=== PATIENT | male | born 1965 | race Caucasian/White ===

== ENCOUNTER 2017-03-26 04:25 | Inpatient (IN) | payer OTHER ==
[2017-03-26] MEDS ORDERED: HYDROmorphone 2 MG/ML VIAL (05:44)
[2017-03-26 05:45] LABS: ADD MAN DIFF? NO
[2017-03-26] MEDS ORDERED: CONTRAST GIVEN MC (05:45)
[2017-03-26] MEDS: IV NORMAL SALINE 1000ML BAG 1,000 ML IV (05:47)
[2017-03-26] MEDS: HYDROmorphone 2 MG/ML VIAL IV (05:47)
[2017-03-26 05:49] LABS: BASO # 0.1 x10^3/uL (0.0-0.2); BASO % 1 % (0-3); EOS # 0.6 x10^3/uL (0.0-0.7); EOS % 7 % (0-3); HEMATOCRIT 43.9 % (39.0-53.0); HEMOGLOBIN 15.4 g/dL (13.0-17.5); LYMPH # 2.2 x10^3/uL (1.0-4.8); LYMPH % 29 % (24-48); MEAN CORPUSCULAR HEMOGLOBIN 34 pg (25-35); MEAN CORPUSCULAR HGB CONC 35 g/dL (31-37); MEAN CORPUSCULAR VOLUME 96 fL (79-100); MONO # 0.7 x10^3/uL (0.0-1.1); MONO % 10 % (0-9); NEUT # 4.2 x10^3uL (1.8-7.7); NEUT % 54 % (31-73); PLATELET COUNT 235 x10^3/uL (140-400); RED BLOOD COUNT 4.58 x10^6/uL (4.30-5.70); RED CELL DISTRIBUTION WIDTH 12.7 % (11.5-14.5); WHITE BLOOD COUNT 7.8 x10^3/uL (4.0-11.0)
[2017-03-26 05:57] LABS: BILIRUBIN,URINE NEGATIVE (NEG); CLARITY,URINE CLEAR; COLOR,URINE AMBER; GLUCOSE,URINE NEGATIVE (NEG); NITRITE,URINE NEGATIVE (NEG); PH,URINE 5.5; PROTEIN,URINE NEGATIVE (NEG-TRACE); UROBILINOGEN,URINE 0.2 mg/dL (0.2 mg/dL)
[2017-03-26 05:59] LABS: BLOOD UREA NITROGEN 15 mg/dL (8-26); CALCIUM 9.3 mg/dL (8.5-10.1); GLUCOSE 128 mg/dL (70-99)
[2017-03-26 06:00] LABS: ANION GAP 11 (6-14); BUN/CREATININE RATIO 19 (6-20); CARBON DIOXIDE 28 mmol/L (21-32); CHLORIDE 101 mmol/L (98-107); CREATININE 0.8 mg/dL (0.7-1.3); GFR 101.9; POTASSIUM 3.8 mmol/L (3.5-5.1); SODIUM 140 mmol/L (136-145)
[2017-03-26 06:05] LABS: ALBUMIN 3.6 g/dL (3.4-5.0); ALBUMIN/GLOBULIN RATIO 0.9 (1.0-1.7); ALK PHOS 100 U/L (46-116); ALT (SGPT) 35 U/L (16-63); AST (SGOT) 17 U/L (15-37); LIPASE 86 U/L (73-393); TOTAL BILIRUBIN 0.7 mg/dL (0.2-1.0); TOTAL PROTEIN 7.5 g/dL (6.4-8.2)
[2017-03-26 06:13] LABS: SQUAMOUS EPITHELIAL CELL,UR OCC /LPF
[2017-03-26 06:14] LABS: BACTERIA,URINE FEW /HPF (0-FEW); RBC,URINE 0 /HPF (0-2); WBC,URINE OCC /HPF (0-4)
[2017-03-26] MEDS: IOHEXOL 300 MG/ML 100ML VIAL. IV ×2 (06:20→06:30)
[2017-03-26] MEDS: IV DEXTROSE 5 %-0.45 % NACL 1,000 ML IV (08:00)
[2017-03-26 08:11] LABS: TROPONINI < 0.017 ng/mL (0.000-0.055)
[2017-03-26 08:19] LABS: CKMB INDEX 0.9 % (0-4); CKMB MASS 1.2 ng/mL (0.0-3.6); CREATINE KINASE 138 U/L (39-308)
[2017-03-26] MEDS: IV 1/2 NORMAL SALINE 1,000 ML IV (08:46)
[2017-03-26] MEDS ORDERED: POLYETHYLENE GLYCOL 3350 17 GM PACKET. PO (10:30)
[2017-03-26] MEDS: POLYETHYLENE GLYCOL 3350 238 GM POWDER PO (13:46)
[2017-03-26 14:02] LABS: TROPONINI < 0.017 ng/mL (0.000-0.055)
[2017-03-26] MEDS: ONDANSETRON PF 4 MG/2 ML VIAL. IV (16:56)
[2017-03-26] MEDS: MORPHINE SULFATE 4 MG/ML DISP.SYRIN. IV (16:57)
[2017-03-27] MEDS: MORPHINE SULFATE 4 MG/ML DISP.SYRIN. IV (04:45)
[2017-03-27 05:02] LABS: ADD MAN DIFF? NO
[2017-03-27 05:16] LABS: BASO % 1 % (0-3); EOS # 0.5 x10^3/uL (0.0-0.7); EOS % 6 % (0-3); HEMATOCRIT 41.3 % (39.0-53.0); HEMOGLOBIN 14.2 g/dL (13.0-17.5); LYMPH # 2.1 x10^3/uL (1.0-4.8); LYMPH % 28 % (24-48); MEAN CORPUSCULAR HEMOGLOBIN 33 pg (25-35); MEAN CORPUSCULAR HGB CONC 34 g/dL (31-37); MEAN CORPUSCULAR VOLUME 95 fL (79-100); MONO # 0.6 x10^3/uL (0.0-1.1); MONO % 8 % (0-9); NEUT # 4.3 x10^3uL (1.8-7.7); NEUT % 57 % (31-73); PLATELET COUNT 225 x10^3/uL (140-400); RED BLOOD COUNT 4.35 x10^6/uL (4.30-5.70); RED CELL DISTRIBUTION WIDTH 12.9 % (11.5-14.5); WHITE BLOOD COUNT 7.5 x10^3/uL (4.0-11.0)
[2017-03-27 06:01] LABS: ALBUMIN 3.3 g/dL (3.4-5.0); ALBUMIN/GLOBULIN RATIO 0.9 (1.0-1.7); ALK PHOS 93 U/L (46-116); ALT (SGPT) 38 U/L (16-63); ANION GAP 10 (6-14); AST (SGOT) 21 U/L (15-37); BLOOD UREA NITROGEN 13 mg/dL (8-26); BUN/CREATININE RATIO 14 (6-20); CALCIUM 8.8 mg/dL (8.5-10.1); CARBON DIOXIDE 27 mmol/L (21-32); CHLORIDE 103 mmol/L (98-107); CREATININE 0.9 mg/dL (0.7-1.3); GLUCOSE 116 mg/dL (70-99); POTASSIUM 3.9 mmol/L (3.5-5.1); SODIUM 140 mmol/L (136-145); TOTAL BILIRUBIN 0.7 mg/dL (0.2-1.0); TOTAL PROTEIN 6.9 g/dL (6.4-8.2)
[2017-03-27] MEDS: LISINOPRIL 2.5 MG TABLET PO (13:00)
[2017-03-27] MEDS: NORMAL SALINE IV (14:00)
[2017-03-27] MEDS: SINCALIDE IV (14:00)
[2017-03-27] MEDS ORDERED: ATORVASTATIN CALCIUM 40 MG TABLET. PO (21:00)
[2017-03-27] MEDS ORDERED: PRAMIPEXOLE 1 MG TABLET. PO (21:00)
[2017-03-28] MEDS ORDERED: metFORMIN 500 MG TABLET PO (08:00)
== END 2017-03-27 16:28 | disposition home or self-care (01) | DRG 392 ==
LOC: ER 04:25 → 6 SOUTH 07:30
DX: R10.10 Upper abdominal pain, unspecified (principal); E11.9 Type 2 diabetes mellitus without complications; E78.00 Pure hypercholesterolemia, unspecified; E78.5 Hyperlipidemia, unspecified; I10 Essential (primary) hypertension; K57.90 Diverticulosis of intestine, part unspecified, without perforation or abscess without bleeding; Z79.84 Long term (current) use of oral hypoglycemic drugs; Z82.3 Family history of stroke; Z82.49 Family history of ischemic heart disease and other diseases of the circulatory system; Z83.3 Family history of diabetes mellitus; Z86.010 Personal history of colon polyps; Z90.49 Acquired absence of other specified parts of digestive tract; Z80.9 Family history of malignant neoplasm, unspecified; Z87.891 Personal history of nicotine dependence
CPT/HCPCS: 36415; 74177; 76705; 78226; 80053; 81001; 82553; 83690; 84484; 85025; 93005; 96374; 96375; A9537; J1170; J2270; J2405; J2805; J7030; Q9967

== ENCOUNTER → 2017-05-14 | Outpatient (CLI) | payer OTHER | END | disposition home or self-care (01) | LOC: MRI 15:13 | DX: M79.632 Pain in left forearm (principal) | CPT/HCPCS: 73218 ==

== ENCOUNTER 2018-05-26 15:06 | Inpatient (IN) | payer OTHER ==
[~2018-05-26] VITALS: Ht 165.1 cm; Wt 109.3 kg
[~2018-05-26 15:06] MED LIST: ACET-422 PO; CRESTOR20 MG PO; CYCL10TA2 PO; DOCU-109 PO; LISI2.5T PO; METF500T16 PO; OXYC1TAB7 PO; PHEN15CA2 PO; PRAM0.5T PO; PRAM1TAB5 PO; PRED20TA PO; TIOT18CA IH; [UNRECOGNIZED DRUG - OTHER]
[2018-05-26 17:01] LABS: BASO # 0.1 x10^3/uL (0.0-0.2); BASO % 1 % (0-3); EOS # 0.4 x10^3/uL (0.0-0.7); EOS % 4 % (0-3); HEMATOCRIT 42.9 % (39.0-53.0); HEMOGLOBIN 14.6 g/dL (13.0-17.5); LYMPH # 2.2 x10^3/uL (1.0-4.8); LYMPH % 22 % (24-48); MEAN CORPUSCULAR HEMOGLOBIN 33 pg (25-35); MEAN CORPUSCULAR HGB CONC 34 g/dL (31-37); MEAN CORPUSCULAR VOLUME 96 fL (79-100); MONO # 0.8 x10^3/uL (0.0-1.1); MONO % 8 % (0-9); NEUT # 6.4 x10^3uL (1.8-7.7); NEUT % 65 % (31-73); PLATELET COUNT 244 x10^3/uL (140-400); RED BLOOD COUNT 4.46 x10^6/uL (4.30-5.70); RED CELL DISTRIBUTION WIDTH 13.2 % (11.5-14.5); WHITE BLOOD COUNT 9.9 x10^3/uL (4.0-11.0)
[2018-05-26] MEDS ORDERED: IOHEXOL 240 MG/ML 50ML VIAL. PO ONE (17:15)
[2018-05-26] MEDS ORDERED: CONTRAST GIVEN. MC PRN (17:15)
[2018-05-26] MEDS ORDERED: IOHEXOL 300 MG/ML 100ML VIAL. IV ONE (17:15)
[2018-05-26 17:38] LABS: CALCIUM 9.1 mg/dL (8.5-10.1); CREATININE 0.8 mg/dL (0.7-1.3); GFR 101.5; POTASSIUM 4.2 mmol/L (3.5-5.1)
[2018-05-26 17:44] LABS: ALBUMIN 3.4 g/dL (3.4-5.0); ALBUMIN/GLOBULIN RATIO 0.9 (1.0-1.7); TOTAL BILIRUBIN 0.4 mg/dL (0.2-1.0); TOTAL PROTEIN 7.3 g/dL (6.4-8.2)
[2018-05-26] MEDS ORDERED: fentaNYL PF VIAL 100 MCG/2 ML VIAL IV ONE (18:00)
--- NOTE | 2018-05-26 18:36 | RAD ---
CT ABD PELV W/ORAL IV CONTRAST Indication: Upper abdominal pain Technique: Postcontrast CT imaging was performed of the abdomen and pelvis, multiplanar reconstruction images submitted. One or more of the following individualized dose reduction techniques were utilized for this examination: 1. Automated exposure control 2. Adjustment of the mA and/or kV according to patient size 3. Use of iterative reconstruction technique. Comparison: August 27, 2014 Findings: There is diffuse hepatic steatosis. There is no abnormality of the limited visualized lung bases. Gallbladder is present without obvious intraluminal abnormality by CT. There is no adrenal nodularity. No focal abnormality is identified of the pancreas or spleen. Both kidneys enhance, no hydronephrosis. There is a small 0.7 cm hypodense lesion of the superior right kidney too small to accurately characterize, slightly larger than 2015 exam when measured about 0.5 cm. The colon is not opacified with oral contrast during the exam. There is scattered colonic diverticulosis, larger diverticula of the transverse colon. There is some hazy and strandy change of the fat about the mid transverse colon, larger diverticulum also present in this region, associated mild wall thickening. Small bowel is not dilated. Normal appendix is visualized. IMPRESSION: 1. There is inflammatory change and wall thickening associated with the mid transverse colon at which there is diverticulosis, evidence of diverticulitis. However colon screening should be considered after resolution of acute symptoms if this has not been performed. 2. There is hepatic steatosis. Electronically signed by: Darius Triplett MD (05/26/2018 6:33 PM) [facility]
--- NOTE | 2018-05-26 18:56 | PHYS DOC ---
Past Medical History Past Medical History: Diabetes-Type II, Diverticulitis, High Cholesterol, Hypertension Additional Past Medical Histor: RLS Past Surgical History: Other Additional Past Surgical Histo: 14" COLON RESECTION, HERNIA Alcohol Use: None Drug Use: None Adult General Chief Complaint Chief Complaint: ABDOMINAL PAIN HPI HPI Patient is a 52 year old male who presents with increasing abdominal pain that started this morning. The patient states that it is a mid upper quadrant abdominal pain but it radiates across his belly. The patient has a complex abdominal history with a long-term issue with diverticulitis. The patient has had a colon resection. He also developed incisional hernias following the surgeries and had mesh placed in his abdomen. The patient does have a history of some gallbladder disease. He has not had gallbladder surgery. He denies diarrhea or vomiting. He states that the pain worsens with movement. Review of Systems Review of Systems Constitutional: Denies fever or chills [] Eyes: Denies change in visual acuity, redness, or eye pain [] HENT: Denies nasal congestion or sore throat [] Respiratory: Denies cough or shortness of breath [] Cardiovascular: No additional information not addressed in HPI [] GI: See history of present illness : Denies dysuria or hematuria [] Musculoskeletal: Denies back pain or joint pain [] Integument: Denies rash or skin lesions [] Neurologic: Denies headache, focal weakness or sensory changes [] Endocrine: Denies polyuria or polydipsia [] All other systems were reviewed and found to be within normal limits, except as documented in this note. Current Medications Current Medications Current Medications Medications (Trade) Dose Ordered Sig/Santy Start Time Stop Time Status Last Admin Dose Admin Ciprofloxacin/ Dextrose 200 ml @ 200 mls/hr 1X ONCE 05/26/18 19:00 05/26/18 19:59 05/26/18 19:17 200 MLS/HR Fentanyl Citrate (Fentanyl 2ml Vial) 50 mcg 1X ONCE 05/26/18 18:00 05/26/18 18:01 DC 05/26/18 18:20 50 MCG Info (CONTRAST GIVEN -- Rx MONITORING) 1 each PRN DAILY PRN 05/26/18 17:15 05/28/18 17:14 Iohexol (Omnipaque 240 Mg/ml) 30 ml 1X ONCE 05/26/18 17:15 05/26/18 17:16 DC 05/26/18 17:15 30 ML Iohexol (Omnipaque 300 Mg/ml) 75 ml 1X ONCE 05/26/18 17:15 05/26/18 17:16 DC 05/26/18 17:15 75 ML Metronidazole 100 ml @ 100 mls/hr 1X ONCE 05/26/18 19:00 05/26/18 19:59 05/26/18 19:17 100 MLS/HR Allergies Allergies Allergies Coded Allergies Type Severity Reaction Last Updated Verified No Known Drug Allergies 09/10/14 No Physical Exam Physical Exam Constitutional: Well developed, well nourished, no acute distress, non-toxic appearance. [] Cardiovascular:Heart rate regular rhythm, no murmur [] Lungs & Thorax: Bilateral breath sounds clear to auscultation [] Abdomen: Bowel sounds normal, firm, tenderness with palpation to mid to right upper quadrant pain, negative Hanson's sign, no masses, no pulsatile masses. [] Skin: Warm, dry, no erythema, no rash. [] Back: No tenderness, no CVA tenderness. [] Extremities: No tenderness, no cyanosis, no clubbing, ROM intact, no edema. [] Neurologic: Alert and oriented X 3, normal motor function, normal sensory function, no focal deficits noted. [] Psychologic: Affect normal, judgement normal, mood normal. [] Current Patient Data Vital Signs Vital Signs Date Time Temp Pulse Resp B/P (MAP) Pulse Ox O2 Delivery O2 Flow Rate FiO2 05/26/18 18:20 20 05/26/18 18:00 85 145/76 (99) 05/26/18 17:30 97 Room Air 05/26/18 16:35 98.4 98.4 Lab Values Laboratory Tests Test 05/26/18 16:54 05/26/18 17:25 White Blood Count 9.9 x10^3/uL (4.0-11.0) Red Blood Count 4.46 x10^6/uL (4.30-5.70) Hemoglobin 14.6 g/dL (13.0-17.5) Hematocrit 42.9 % (39.0-53.0) Mean Corpuscular Volume 96 fL (79-100) Mean Corpuscular Hemoglobin 33 pg (25-35) Mean Corpuscular Hemoglobin Concent 34 g/dL (31-37) Red Cell Distribution Width 13.2 % (11.5-14.5) Platelet Count 244 x10^3/uL (140-400) Neutrophils (%) (Auto) 65 % (31-73) Lymphocytes (%) (Auto) 22 % (24-48) L Monocytes (%) (Auto) 8 % (0-9) Eosinophils (%) (Auto) 4 % (0-3) H Basophils (%) (Auto) 1 % (0-3) Neutrophils # (Auto) 6.4 x10^3uL (1.8-7.7) Lymphocytes # (Auto) 2.2 x10^3/uL (1.0-4.8) Monocytes # (Auto) 0.8 x10^3/uL (0.0-1.1) Eosinophils # (Auto) 0.4 x10^3/uL (0.0-0.7) Basophils # (Auto) 0.1 x10^3/uL (0.0-0.2) Sodium Level 139 mmol/L (136-145) Potassium Level 4.2 mmol/L (3.5-5.1) Chloride Level 102 mmol/L (98-107) Carbon Dioxide Level 30 mmol/L (21-32) Anion Gap 7 (6-14) Blood Urea Nitrogen 12 mg/dL (8-26) Creatinine 0.8 mg/dL (0.7-1.3) Estimated GFR (Cockcroft-Gault) 101.5 BUN/Creatinine Ratio 15 (6-20) Glucose Level 194 mg/dL (70-99) H Calcium Level 9.1 mg/dL (8.5-10.1) Total Bilirubin 0.4 mg/dL (0.2-1.0) Aspartate Amino Transferase (AST) 16 U/L (15-37) Alanine Aminotransferase (ALT) 51 U/L (16-63) Alkaline Phosphatase 112 U/L (46-116) Total Protein 7.3 g/dL (6.4-8.2) Albumin 3.4 g/dL (3.4-5.0) Albumin/Globulin Ratio 0.9 (1.0-1.7) L Amylase Level 40 U/L (25-115) Lipase 76 U/L (73-393) Laboratory Tests 05/26/18 16:54 Laboratory Tests 05/26/18 17:25 EKG EKG [] Radiology/Procedures Radiology/Procedures []PATIENT: FROYLAN BURKETT CACCOUNT: [id number]#: [id number] : 1965 LOCATION: ER AGE: 52 SEX: M EXAM STATUS: REG ER ORD. PHYSICIAN: JUVE YBARRA APRN REASON: abdominal pain to RUQ PROCEDURE: CT ABD PELV W/ORAL&IV CONTRAST CT ABD PELV W/ORAL IV CONTRAST Indication: Upper abdominal pain Technique: Postcontrast CT imaging was performed of the abdomen and pelvis, multiplanar reconstruction images submitted. One or more of the following individualized dose reduction techniques were utilized for this examination: 1. Automated exposure control 2. Adjustment of the mA and/or kV according to patient size 3. Use of iterative reconstruction technique. Comparison: August 27, 2014 Findings: There is diffuse hepatic steatosis. There is no abnormality of the limited visualized lung bases. Gallbladder is present without obvious intraluminal abnormality by CT. There is no adrenal nodularity. No focal abnormality is identified of the pancreas or spleen. Both kidneys enhance, no hydronephrosis. There is a small 0.7 cm hypodense lesion of the superior right kidney too small to accurately characterize, slightly larger than 2015 exam when measured about 0.5 cm. The colon is not opacified with oral contrast during the exam. There is scattered colonic diverticulosis, larger diverticula of the transverse colon. There is some hazy and strandy change of the fat about the mid transverse colon, larger diverticulum also present in this region, associated mild wall thickening. Small bowel is not dilated. Normal appendix is visualized. IMPRESSION: 1. There is inflammatory change and wall thickening associated with the mid transverse colon at which there is diverticulosis, evidence of diverticulitis. However colon screening should be considered after resolution of acute symptoms if this has not been performed. 2. There is hepatic steatosis. Electronically signed by: Hunter Pugh MD (05/26/2018 6:33 PM) [facility] DICTATED and SIGNED BY: HUNTER PUGH MD DATE: 05/26/18 1833 Course & Med Decision Making Course & Med Decision Making Pertinent Labs and Imaging studies reviewed. (See chart for details) []The patient is being admitted to Dr. Lackey's service for further treatment of his diverticulitis. The patient was given fentanyl, Cipro and Flagyl in the emergency department. Dragon Disclaimer Dragon Disclaimer This electronic medical record was generated, in whole or in part, using a voice recognition dictation system. Departure Departure Impression: Primary Impression: Diverticulitis Additional Impression: Abdominal pain Disposition: ADMITTED INPATIENT Admitting Physician: Zechariah Lackey Condition: STABLE Referrals: ZECHARIAH LACKEY MD (PCP) Problem Qualifiers JUVE YBARRA FELT PULLER May 26, 2018 18:56
[2018-05-26] MEDS ORDERED: CIPROFLOXACIN 400MG PREMIX 200 ML IV ONE (19:00)
[2018-05-26 19:29] LABS: BILIRUBIN,URINE NEGATIVE (NEG); CLARITY,URINE CLEAR; COLOR,URINE YELLOW; NITRITE,URINE NEGATIVE (NEG); PROTEIN,URINE NEGATIVE (NEG-TRACE)
[2018-05-26 19:41] LABS: BACTERIA,URINE 0 /HPF (0-FEW); RBC,URINE OCC /HPF (0-2); SQUAMOUS EPITHELIAL CELL,UR OCC /LPF; WBC,URINE 0 /HPF (0-4)
[2018-05-26 21:00] VITALS: BP 126/79
[2018-05-26] MEDS ORDERED: ONDANSETRON PF 4 MG/2 ML VIAL. IV PRN (21:15)
[2018-05-26] MEDS ORDERED: TEST1PAT3 TD (21:58)
[2018-05-26] MEDS ORDERED: PRAM1TAB PO (21:58)
[2018-05-26 23:00] VITALS: BP 132/73
[2018-05-27] MEDS: fentaNYL PF VIAL 100 MCG/2 ML VIAL IV PRN ×2 (00:28→06:27)
--- NOTE | 2018-05-27 01:12 | NUR ---
The patient, FROYLAN BURKETT, 52 y/o, M admitted by AGUSTÍN STALLWORTH MD, was given written information regarding hospital policies, unit procedures and contact persons. patient was admitted to room 567 at 2100. The patient was assisted to the room by ED staff, transported via ED bed. Valuables were checked and noted. the patient denies pain at this time, states the pain increases with movement. The patient is resting in bed with his at the bedside. The patient states no needs at this time. This RN will continue to monitor the patient at this time.
[2018-05-27 03:00] VITALS: BP 123/86
[2018-05-27 07:00] VITALS: BP 137/97
--- NOTE | 2018-05-27 07:26 | PDOC1 ---
History and Physical Date of Admission Date of Admission 05/26/18 Identification/Chief Complaint Chief Complaint Stomach hurting Source Source: Patient History of Present Illness History of Present Illness Pt states that experienced sudden onset of epigastric pain yesterday afternoon and was unable to get into the clinic so came to the ER. Was told that he had diverticulitis. Pain was uncontrolled so was admitted. Pt denies fevers, chills, nausea, vomiting. Pain worse with bending over and moving. Denies diarrhea, constipation. Pain has slightly improved this morning Past Medical History Cardiovascular: HTN, Hyperlipidemia Pulmonary: No pertinent hx GI: Diverticulosis Heme/Onc: No pertinent hx Hepatobiliary: No pertinent hx Psych: No pertinent hx Rheumatologic: No pertinent hx Infectious disease: No pertinent hx ENT: No pertinent hx Renal/: No pertinent hx Endocrine: Diabetes Dermatology: No pertinent hx Past Surgical History Past Surgical History: Hernia Repair, Colon Resection, Other Family History Family History: Cancer, Diabetes, Heart Disease, High Cholestrol, Hypertension , Stroke Social History Smoke: No ALCOHOL: rare Drugs: None Current Problem List Problem List Problems Medical Problems: (1) Abdominal pain Status: Acute (2) Diverticulitis Status: Acute Current Medications Current Medications Current Medications Medications (Trade) Dose Ordered Sig/Santy Start Time Stop Time Status Last Admin Dose Admin Acetaminophen/ Hydrocodone Bitart (Lortab 5/325) 1 tab PRN Q4HRS PRN 05/27/18 07:30 UNV Ciprofloxacin/ Dextrose 200 ml @ 200 mls/hr 1X ONCE 05/26/18 19:00 05/26/18 19:59 DC 05/26/18 19:17 200 MLS/HR Fentanyl Citrate (Fentanyl 2ml Vial) 50 mcg PRN Q2HR PRN 05/26/18 21:15 05/27/18 06:27 50 MCG Info (CONTRAST GIVEN -- Rx MONITORING) 1 each PRN DAILY PRN 05/26/18 17:15 05/28/18 17:14 Iohexol (Omnipaque 240 Mg/ml) 30 ml 1X ONCE 05/26/18 17:15 05/26/18 17:16 DC 05/26/18 17:15 30 ML Iohexol (Omnipaque 300 Mg/ml) 75 ml 1X ONCE 05/26/18 17:15 05/26/18 17:16 DC 05/26/18 17:15 75 ML Metronidazole 100 ml @ 100 mls/hr 1X ONCE 05/26/18 19:00 05/26/18 19:59 DC 05/26/18 19:17 100 MLS/HR Multi-Ingredient Mouthwash/Gargle (Magic Mouthwash) 10 ml PRN QID PRN 05/27/18 07:30 UNV Ondansetron HCl (Zofran) 4 mg PRN Q6HRS PRN 05/26/18 21:15 Piperacillin Sod/ Tazobactam Sod 3.375 gm/Sodium Chloride 50 ml @ 100 mls/hr Q6HRS 05/27/18 08:00 Allergies Allergies Allergies Coded Allergies Type Severity Reaction Last Updated Verified No Known Drug Allergies 09/10/14 No ROS Review of System CONSTITUTIONAL: No fever or chills EYES: No recent changes SKIN: No rash or itching CARDIOVASCULAR: No chest pain, syncope, palpitations, or edema RESPIRATORY: No SOB or cough GASTROINTESTINAL: No nausea, vomiting, +abdominal pain NEUROLOGICAL: No headaches or weakness ENDOCRINE: No cold or heat intolerance GENITOURINARY: No urgency or frequency of urination MUSCULOSKELETAL: No back pain or joint pain LYMPHATICS: No enlarged lymph nodes PSYCHIATRIC: No anxiety or depression Physical Exam Physical Exam GEN.: No apparent distress. Alert and oriented. HEENT: Head is normocephalic, atraumatic NECK: Supple. LUNGS: Clear to auscultation. HEART: RRR, S1, S2 present. Peripheral pulses intact ABDOMEN: Positive bowel sounds. Tenderness to right of umbilicus around area of incisional hernia EXTREMITIES: Without any cyanosis. NEUROLOGIC: Normal speech, normal tone PSYCHIATRIC: Normal affect, normal mood. SKIN: No ulcerations Vitals Vitals Vital Signs Date Time Temp Pulse Resp B/P (MAP) Pulse Ox O2 Delivery O2 Flow Rate FiO2 05/27/18 07:18 Room Air 05/27/18 06:27 97 05/27/18 03:00 98.6 82 16 123/86 (98) 98.6 Labs Labs Laboratory Tests Test 05/26/18 16:54 05/26/18 17:25 05/26/18 19:23 White Blood Count 9.9 x10^3/uL (4.0-11.0) Red Blood Count 4.46 x10^6/uL (4.30-5.70) Hemoglobin 14.6 g/dL (13.0-17.5) Hematocrit 42.9 % (39.0-53.0) Mean Corpuscular Volume 96 fL (79-100) Mean Corpuscular Hemoglobin 33 pg (25-35) Mean Corpuscular Hemoglobin Concent 34 g/dL (31-37) Red Cell Distribution Width 13.2 % (11.5-14.5) Platelet Count 244 x10^3/uL (140-400) Neutrophils (%) (Auto) 65 % (31-73) Lymphocytes (%) (Auto) 22 % (24-48) Monocytes (%) (Auto) 8 % (0-9) Eosinophils (%) (Auto) 4 % (0-3) Basophils (%) (Auto) 1 % (0-3) Neutrophils # (Auto) 6.4 x10^3uL (1.8-7.7) Lymphocytes # (Auto) 2.2 x10^3/uL (1.0-4.8) Monocytes # (Auto) 0.8 x10^3/uL (0.0-1.1) Eosinophils # (Auto) 0.4 x10^3/uL (0.0-0.7) Basophils # (Auto) 0.1 x10^3/uL (0.0-0.2) Sodium Level 139 mmol/L (136-145) Potassium Level 4.2 mmol/L (3.5-5.1) Chloride Level 102 mmol/L (98-107) Carbon Dioxide Level 30 mmol/L (21-32) Anion Gap 7 (6-14) Blood Urea Nitrogen 12 mg/dL (8-26) Creatinine 0.8 mg/dL (0.7-1.3) Estimated GFR (Cockcroft-Gault) 101.5 BUN/Creatinine Ratio 15 (6-20) Glucose Level 194 mg/dL (70-99) Calcium Level 9.1 mg/dL (8.5-10.1) Total Bilirubin 0.4 mg/dL (0.2-1.0) Aspartate Amino Transf (AST/SGOT) 16 U/L (15-37) Alanine Aminotransferase (ALT/SGPT) 51 U/L (16-63) Alkaline Phosphatase 112 U/L (46-116) Total Protein 7.3 g/dL (6.4-8.2) Albumin 3.4 g/dL (3.4-5.0) Albumin/Globulin Ratio 0.9 (1.0-1.7) Amylase Level 40 U/L (25-115) Lipase 76 U/L (73-393) Urine Collection Type Unknown Urine Color Yellow Urine Clarity Clear Urine pH 7.0 Urine Specific [place] >=1.030 Urine Protein Negative mg/dL (NEG-TRACE) Urine Glucose (UA) 100 mg/dL (NEG) Urine Ketones (Stick) Negative mg/dL (NEG) Urine Blood Negative (NEG) Urine Nitrite Negative (NEG) Urine Bilirubin Negative (NEG) Urine Urobilinogen Dipstick 1.0 mg/dL (0.2 mg/dL) Urine Leukocyte Esterase Negative (NEG) Urine RBC Occ /HPF (0-2) Urine WBC 0 /HPF (0-4) Urine Squamous Epithelial Cells Occ /LPF Urine Bacteria 0 /HPF (0-FEW) Urine Mucus Slight /LPF Laboratory Tests Test 05/26/18 16:54 05/26/18 17:25 05/26/18 19:23 White Blood Count 9.9 x10^3/uL (4.0-11.0) Red Blood Count 4.46 x10^6/uL (4.30-5.70) Hemoglobin 14.6 g/dL (13.0-17.5) Hematocrit 42.9 % (39.0-53.0) Mean Corpuscular Volume 96 fL (79-100) Mean Corpuscular Hemoglobin 33 pg (25-35) Mean Corpuscular Hemoglobin Concent 34 g/dL (31-37) Red Cell Distribution Width 13.2 % (11.5-14.5) Platelet Count 244 x10^3/uL (140-400) Neutrophils (%) (Auto) 65 % (31-73) Lymphocytes (%) (Auto) 22 % (24-48) Monocytes (%) (Auto) 8 % (0-9) Eosinophils (%) (Auto) 4 % (0-3) Basophils (%) (Auto) 1 % (0-3) Neutrophils # (Auto) 6.4 x10^3uL (1.8-7.7) Lymphocytes # (Auto) 2.2 x10^3/uL (1.0-4.8) Monocytes # (Auto) 0.8 x10^3/uL (0.0-1.1) Eosinophils # (Auto) 0.4 x10^3/uL (0.0-0.7) Basophils # (Auto) 0.1 x10^3/uL (0.0-0.2) Sodium Level 139 mmol/L (136-145) Potassium Level 4.2 mmol/L (3.5-5.1) Chloride Level 102 mmol/L (98-107) Carbon Dioxide Level 30 mmol/L (21-32) Anion Gap 7 (6-14) Blood Urea Nitrogen 12 mg/dL (8-26) Creatinine 0.8 mg/dL (0.7-1.3) Estimated GFR (Cockcroft-Gault) 101.5 BUN/Creatinine Ratio 15 (6-20) Glucose Level 194 mg/dL (70-99) Calcium Level 9.1 mg/dL (8.5-10.1) Total Bilirubin 0.4 mg/dL (0.2-1.0) Aspartate Amino Transf (AST/SGOT) 16 U/L (15-37) Alanine Aminotransferase (ALT/SGPT) 51 U/L (16-63) Alkaline Phosphatase 112 U/L (46-116) Total Protein 7.3 g/dL (6.4-8.2) Albumin 3.4 g/dL (3.4-5.0) Albumin/Globulin Ratio 0.9 (1.0-1.7) Amylase Level 40 U/L (25-115) Lipase 76 U/L (73-393) Urine Collection Type Unknown Urine Color Yellow Urine Clarity Clear Urine pH 7.0 Urine Specific [place] >=1.030 Urine Protein Negative mg/dL (NEG-TRACE) Urine Glucose (UA) 100 mg/dL (NEG) Urine Ketones (Stick) Negative mg/dL (NEG) Urine Blood Negative (NEG) Urine Nitrite Negative (NEG) Urine Bilirubin Negative (NEG) Urine Urobilinogen Dipstick 1.0 mg/dL (0.2 mg/dL) Urine Leukocyte Esterase Negative (NEG) Urine RBC Occ /HPF (0-2) Urine WBC 0 /HPF (0-4) Urine Squamous Epithelial Cells Occ /LPF Urine Bacteria 0 /HPF (0-FEW) Urine Mucus Slight /LPF VTE Prophylaxis Ordered VTE Prophylaxis Devices: Yes VTE Pharmacological Prophylaxi: No Assessment/Plan Assessment/Plan Pt admitted with abdominal pain and diverticulitis 1)Diverticulitis- pt started on Zosyn today, received abx in ER. Will continue IVF hydration. If pain improves will discharge later today on abx 2)Abdominal pain- think there is also a contribution from ventral hernia 3)DM2- has been well controlled without medication. SSI ordered. 4)HTN- well controlled. CTM 5)HLD- pt's Rosuvastatin has been held 6)Hypotestosteronism- will hold medication during hospitalization AGUSTÍN STALLWORTH MD May 27, 2018 07:26
[2018-05-27] MEDS ORDERED: HYDROcodone/APAP 5/325MG 1 TAB TABLET PO PRN (07:30)
[2018-05-27] MEDS ORDERED: LIDO:MAALOX:BENADRYL 1:1:1 180 ML BOTTLE. PO PRN (07:30)
[2018-05-27] MEDS ORDERED: ACETAMINOPHEN 500 MG TABLET PO PRN (07:30)
[2018-05-27] MEDS ORDERED: PIPERACILLIN/TAZOBACTAM 3.375 GM in IV NORMAL SALINE 50ML 50 ML IV SCH (08:00)
[2018-05-27] MEDS ORDERED: DEXTROSE 50% 25 GM / 50ML DISP.SYRIN. IV PRN (10:15)
[2018-05-27 10:38] VITALS: BP 139/89
--- NOTE | 2018-05-27 11:07 | NUR ---
SW following. Discussed with RN, pt is from home with . RN advised no SW needs and anticipates possible discharge home today (05/27/18).
[2018-05-27] MEDS ORDERED: IBUPROFEN 400 MG TABLET. PO ONE (11:30)
[2018-05-27] MEDS ORDERED: INSULIN LISPRO 300 UNITS/3 ML INSULN.PEN. SQ SCH (12:00)
[2018-05-27] MEDS ORDERED: METR-34 PO (14:17)
[2018-05-27] MEDS ORDERED: SULF1TAB24 PO (14:17)
--- NOTE | 2018-05-27 14:17 | PDOC3 ---
Discharge Summary Date of Admission: May 26, 2018 Date of Discharge: May 27, 2018 Follow-Up: Other ([address] Stallworth) Admitting Diagnosis comment: Diverticulitis FINAL DIAGNOSIS Diverticulitis, DM2, HTN, HLD, Hypotestosteronism Brief Hospital Course Pt admitted with abdominal pain and diverticulitis 1)Diverticulitis- pt started on Zosyn on admission. Discharged on Metronidazole and Bactrim. 2)Abdominal pain- think there is also a contribution from ventral hernia, improved on discharge 3)DM2- has been well controlled without medication. SSI ordered during hospitalization 4)HTN- well controlled. 5)HLD- pt's Rosuvastatin was held during hospitalization 6)Hypotestosteronism- medication held during hospitalization CONDITION AT DISCHARGE: Improved Discharge Medications Current Medications Iohexol (Omnipaque 300 Mg/ml) 75 ml 1X ONCE IV Last administered on 05/26/18at 17:15; Start 05/26/18 at 17:15; Stop 05/26/18 at 17:16; Status DC Iohexol (Omnipaque 240 Mg/ml) 30 ml 1X ONCE PO Last administered on 05/26/18at 17:15; Start 05/26/18 at 17:15; Stop 05/26/18 at 17:16; Status DC Info (CONTRAST GIVEN -- Rx MONITORING) 1 each PRN DAILY PRN MC SEE COMMENTS; Start 05/26/18 at 17:15; Stop 05/28/18 at 17:14 Fentanyl Citrate (Fentanyl 2ml Vial) 50 mcg 1X ONCE IV Last administered on at 18:20; Start 05/26/18 at 18:00; Stop 05/26/18 at 18:01; Status DC Ciprofloxacin/ Dextrose 200 ml @ 200 mls/hr 1X ONCE IV Last administered on at 19:17; Start 05/26/18 at 19:00; Stop 05/26/18 at 19:59; Status DC Metronidazole 100 ml @ 100 mls/hr 1X ONCE IV Last administered on 05/26/18at 19:17; Start 05/26/18 at 19:00; Stop 05/26/18 at 19:59; Status DC Fentanyl Citrate (Fentanyl 2ml Vial) 50 mcg PRN Q2HR PRN IV PAIN Last administered on 05/27/18at 06:27; Start 05/26/18 at 21:15 Ondansetron HCl (Zofran) 4 mg PRN Q6HRS PRN IV NAUSEA/VOMITING; Start 05/26/18 at 21:15 Piperacillin Sod/ Tazobactam Sod 3.375 gm/Sodium Chloride 50 ml @ 100 mls/hr Q6HRS IV Last administered on 05/27/18at 08:21; Start 05/27/18 at 08:00 Multi-Ingredient Mouthwash/Gargle (Magic Mouthwash) 10 ml PRN QID PRN PO MOUTH PAIN; Start 05/27/18 at 07:30 Acetaminophen/ Hydrocodone Bitart (Lortab 5/325) 1 tab PRN Q4HRS PRN PO PAIN Last administered on 05/27/18at 09:40; Start 05/27/18 at 07:30 Acetaminophen (Tylenol) 500 mg PRN Q6HRS PRN PO MILD PAIN / TEMP Last administered on 05/27/18at 08:21; Start 05/27/18 at 07:30 Insulin Human Lispro (HumaLOG) 0-5 UNITS TIDWMEALS SQ ; Start 05/27/18 at 12:00 Dextrose (Dextrose 50%-Water Syringe) 12.5 gm PRN Q15MIN PRN IV SEE COMMENTS; Start 05/27/18 at 10:15 Ibuprofen (Motrin) 800 mg 1X ONCE PO Last administered on 05/27/18at 11:05; Start 05/27/18 at 11:30; Stop 05/27/18 at 11:31; Status DC Active Scripts Active Reported Pramipexole Dihydrochloride (Pramipexole Di-Hcl) 1 Mg Tablet 1 Mg PO HS Androderm (Testosterone) 1 Each Patch.td24 1 Patch TD DAILY Acetaminophen Pm Caplet (Acetaminophen/Diphenhydramine) 1 Each Tablet 2 Each PO PRN Phentermine Hcl 15 Mg Capsule 1 Cap PO DAILY Crestor (Rosuvastatin Calcium) 20 Mg Tablet 20 Mg PO HS Last dose 05/20/14. Next dose 05/21/14 at bedtime. Vital Signs Vital Signs Date Time Temp Pulse Resp B/P (MAP) Pulse Ox O2 Delivery O2 Flow Rate FiO2 05/27/18 10:51 96 Room Air 05/27/18 10:38 97.9 91 19 139/89 (106) 97.9 Labs Laboratory Tests Test 05/26/18 16:54 05/26/18 17:25 05/26/18 19:23 White Blood Count 9.9 x10^3/uL (4.0-11.0) Red Blood Count 4.46 x10^6/uL (4.30-5.70) Hemoglobin 14.6 g/dL (13.0-17.5) Hematocrit 42.9 % (39.0-53.0) Mean Corpuscular Volume 96 fL (79-100) Mean Corpuscular Hemoglobin 33 pg (25-35) Mean Corpuscular Hemoglobin Concent 34 g/dL (31-37) Red Cell Distribution Width 13.2 % (11.5-14.5) Platelet Count 244 x10^3/uL (140-400) Neutrophils (%) (Auto) 65 % (31-73) Lymphocytes (%) (Auto) 22 % (24-48) Monocytes (%) (Auto) 8 % (0-9) Eosinophils (%) (Auto) 4 % (0-3) Basophils (%) (Auto) 1 % (0-3) Neutrophils # (Auto) 6.4 x10^3uL (1.8-7.7) Lymphocytes # (Auto) 2.2 x10^3/uL (1.0-4.8) Monocytes # (Auto) 0.8 x10^3/uL (0.0-1.1) Eosinophils # (Auto) 0.4 x10^3/uL (0.0-0.7) Basophils # (Auto) 0.1 x10^3/uL (0.0-0.2) Sodium Level 139 mmol/L (136-145) Potassium Level 4.2 mmol/L (3.5-5.1) Chloride Level 102 mmol/L (98-107) Carbon Dioxide Level 30 mmol/L (21-32) Anion Gap 7 (6-14) Blood Urea Nitrogen 12 mg/dL (8-26) Creatinine 0.8 mg/dL (0.7-1.3) Estimated GFR (Cockcroft-Gault) 101.5 BUN/Creatinine Ratio 15 (6-20) Glucose Level 194 mg/dL (70-99) Calcium Level 9.1 mg/dL (8.5-10.1) Total Bilirubin 0.4 mg/dL (0.2-1.0) Aspartate Amino Transf (AST/SGOT) 16 U/L (15-37) Alanine Aminotransferase (ALT/SGPT) 51 U/L (16-63) Alkaline Phosphatase 112 U/L (46-116) Total Protein 7.3 g/dL (6.4-8.2) Albumin 3.4 g/dL (3.4-5.0) Albumin/Globulin Ratio 0.9 (1.0-1.7) Amylase Level 40 U/L (25-115) Lipase 76 U/L (73-393) Urine Collection Type Unknown Urine Color Yellow Urine Clarity Clear Urine pH 7.0 Urine Specific [place] >=1.030 Urine Protein Negative mg/dL (NEG-TRACE) Urine Glucose (UA) 100 mg/dL (NEG) Urine Ketones (Stick) Negative mg/dL (NEG) Urine Blood Negative (NEG) Urine Nitrite Negative (NEG) Urine Bilirubin Negative (NEG) Urine Urobilinogen Dipstick 1.0 mg/dL (0.2 mg/dL) Urine Leukocyte Esterase Negative (NEG) Urine RBC Occ /HPF (0-2) Urine WBC 0 /HPF (0-4) Urine Squamous Epithelial Cells Occ /LPF Urine Bacteria 0 /HPF (0-FEW) Urine Mucus Slight /LPF Laboratory Tests Test 05/26/18 16:54 05/26/18 17:25 05/26/18 19:23 White Blood Count 9.9 x10^3/uL (4.0-11.0) Red Blood Count 4.46 x10^6/uL (4.30-5.70) Hemoglobin 14.6 g/dL (13.0-17.5) Hematocrit 42.9 % (39.0-53.0) Mean Corpuscular Volume 96 fL (79-100) Mean Corpuscular Hemoglobin 33 pg (25-35) Mean Corpuscular Hemoglobin Concent 34 g/dL (31-37) Red Cell Distribution Width 13.2 % (11.5-14.5) Platelet Count 244 x10^3/uL (140-400) Neutrophils (%) (Auto) 65 % (31-73) Lymphocytes (%) (Auto) 22 % (24-48) Monocytes (%) (Auto) 8 % (0-9) Eosinophils (%) (Auto) 4 % (0-3) Basophils (%) (Auto) 1 % (0-3) Neutrophils # (Auto) 6.4 x10^3uL (1.8-7.7) Lymphocytes # (Auto) 2.2 x10^3/uL (1.0-4.8) Monocytes # (Auto) 0.8 x10^3/uL (0.0-1.1) Eosinophils # (Auto) 0.4 x10^3/uL (0.0-0.7) Basophils # (Auto) 0.1 x10^3/uL (0.0-0.2) Sodium Level 139 mmol/L (136-145) Potassium Level 4.2 mmol/L (3.5-5.1) Chloride Level 102 mmol/L (98-107) Carbon Dioxide Level 30 mmol/L (21-32) Anion Gap 7 (6-14) Blood Urea Nitrogen 12 mg/dL (8-26) Creatinine 0.8 mg/dL (0.7-1.3) Estimated GFR (Cockcroft-Gault) 101.5 BUN/Creatinine Ratio 15 (6-20) Glucose Level 194 mg/dL (70-99) Calcium Level 9.1 mg/dL (8.5-10.1) Total Bilirubin 0.4 mg/dL (0.2-1.0) Aspartate Amino Transf (AST/SGOT) 16 U/L (15-37) Alanine Aminotransferase (ALT/SGPT) 51 U/L (16-63) Alkaline Phosphatase 112 U/L (46-116) Total Protein 7.3 g/dL (6.4-8.2) Albumin 3.4 g/dL (3.4-5.0) Albumin/Globulin Ratio 0.9 (1.0-1.7) Amylase Level 40 U/L (25-115) Lipase 76 U/L (73-393) Urine Collection Type Unknown Urine Color Yellow Urine Clarity Clear Urine pH 7.0 Urine Specific [place] >=1.030 Urine Protein Negative mg/dL (NEG-TRACE) Urine Glucose (UA) 100 mg/dL (NEG) Urine Ketones (Stick) Negative mg/dL (NEG) Urine Blood Negative (NEG) Urine Nitrite Negative (NEG) Urine Bilirubin Negative (NEG) Urine Urobilinogen Dipstick 1.0 mg/dL (0.2 mg/dL) Urine Leukocyte Esterase Negative (NEG) Urine RBC Occ /HPF (0-2) Urine WBC 0 /HPF (0-4) Urine Squamous Epithelial Cells Occ /LPF Urine Bacteria 0 /HPF (0-FEW) Urine Mucus Slight /LPF Allergies Allergies Coded Allergies Type Severity Reaction Last Updated Verified No Known Drug Allergies 09/10/14 No Disposition/Orders: D/C to Home AGUSTÍN STALLWORTH MD May 27, 2018 14:17
[2018-05-27 14:43] VITALS: BP 137/83
--- NOTE | 2018-05-27 15:20 | NUR ---
pt discharged home with . meds and follow up reviewed. pt voiced understanding. pt stable upon dc
== END 2018-05-27 15:23 | disposition home or self-care (01) | DRG 392 ==
LOC: ER 15:06 → 5 SOUTH 19:47
PROVIDERS: ADMIT Family Medicine; ATTEND Family Medicine
DX: K57.92 Diverticulitis of intestine, part unspecified, without perforation or abscess without bleeding (principal); K76.0 Fatty (change of) liver, not elsewhere classified; I10 Essential (primary) hypertension; E78.00 Pure hypercholesterolemia, unspecified; E78.5 Hyperlipidemia, unspecified; E11.9 Type 2 diabetes mellitus without complications; G25.81 Restless legs syndrome; Z90.49 Acquired absence of other specified parts of digestive tract; Z83.3 Family history of diabetes mellitus; Z82.49 Family history of ischemic heart disease and other diseases of the circulatory system; Z82.3 Family history of stroke; Z83.49 Family history of other endocrine, nutritional and metabolic diseases; Z80.9 Family history of malignant neoplasm, unspecified
CPT/HCPCS: 36415; 74177; 80053; 81001; 82150; 83690; 85025; 96365; 96368; 96375; 96376; J0744; J1815; J2543; J3010; J3490; Q9966; Q9967; 99285-25

== ENCOUNTER → 2019-02-08 | Outpatient (CLI) | payer OTHER ==
[~2019-02-08] MED LIST changes: +METR-34 PO; +PRAM1TAB PO; +SULF1TAB24 PO; +TEST1PAT3 TD
--- NOTE | 2019-02-09 09:37 | SLEEP ---
DATE OF STUDY: SLEEP STUDY ATTENDING PHYSICIAN: Ramsey Aburto MD REFERRING PHYSICIAN: Rishabh Jackson MD The patient is 53 years old who weighs 290 pounds with a BMI of 40. The patient's [place] score was 20. The patient has been on CPAP at an unknown pressure, but has been having severe subjective hypersomnia. As a result, a titration study was performed to assess the efficacy of CPAP. During the night of the study, the patient spent 386 minutes in bed and slept for 342 minutes with a sleep efficiency of 89%. Sleep latency was 6 minutes with a REM latency of 93 minutes. Sleep architecture showed normal stage 1 sleep, increased stage 2 sleep, normal slow wave and reduced REM sleep. EKG monitoring revealed normal sinus rhythm, average heart rate 78 beats per minute, no arrhythmias observed. PLMS were seen at the index of 27 per hour and 5 per hour caused EEG arousals. The patient was started on CPAP at 16 cm water and continued with the same pressure. The patient slept for 293 minutes at that pressure, the patient had supine as well as REM sleep. The patient's AHI was reduced to 1 per hour and oxygen saturation remained above 88%. The patient used medium size full face mask. IMPRESSION: 1. Moderate sleep apnea diagnosed by previous sleep study. 2. [id number] PLMS. RECOMMENDATIONS: 1. CPAP at 16 cm water completely eliminated the patient's sleep apnea and should be used on a nightly basis. 2. Follow up in 4-6 weeks to assess compliance with CPAP and to document clinical improvement. 3. If the patient remains clinically symptomatic despite effective use of CPAP, then the patient would benefit from addition of a stimulant medication. 4. Weight loss is strongly advised. 5. Avoid [employer] depressants. 6. Cautioned regarding driving until symptoms of sleep apnea resolve with current CPAP pressure. RISHABH JACKSON MD DR: REHAN/jose JOB#: [id number] / [id number]
== END | disposition home or self-care (01) ==
LOC: RT 20:37
PROVIDERS: ATTEND Internal Medicine Critical Care Medicine
DX: G47.30 Sleep apnea, unspecified (principal); G47.61 Periodic limb movement disorder
CPT/HCPCS: 95811

== ENCOUNTER 2019-03-15 15:25 | Emergency (ER) | payer OTHER ==
[2019-03-15] MEDS ORDERED: IV NORMAL SALINE 1000ML BAG 1,000 ML IV SCH (16:19)
--- NOTE | 2019-03-15 16:28 | PHYS DOC ---
Past Medical History Past Medical History: Diabetes-Type II, Diverticulitis, High Cholesterol, Hypertension Additional Past Medical Histor: RLS Past Surgical History: Other Additional Past Surgical Histo: 14" COLON RESECTION, HERNIA Alcohol Use: None Drug Use: None Adult General Chief Complaint Chief Complaint: ABDOMINAL PAIN [facility] HPI Patient is a 53 year old with history of hypertension, dyslipidemia, diabetes mellitus, diverticulitis, restless leg syndrome who presents with pain of abdominal pain. Patient complaining of constant left upper quadrant aching pain since yesterday with mild nausea without anorexia, fever, urinary symptom, constipation. Patient states he had history of diverticulitis with resection of 14 inch of colon several years ago and since then has had frequent episodes of bowel movement without new changes recently. Patient denies change of flatus. Review of Systems Review of Systems Constitutional: Denies fever or chills [] Eyes: Denies change in visual acuity, redness, or eye pain [] HENT: Denies nasal congestion or sore throat [] Respiratory: Denies cough or shortness of breath [] Cardiovascular: No additional information not addressed in HPI [] GI: Reports abdominal pain, nausea, diarrhea [] : Denies dysuria or hematuria [] Musculoskeletal: Denies back pain or joint pain [] Integument: Denies rash or skin lesions [] Neurologic: Denies headache, focal weakness or sensory changes [] Endocrine: Denies polyuria or polydipsia [] All other systems were reviewed and found to be within normal limits, except as documented in this note. Current Medications Current Medications Current Medications Medications (Trade) Dose Ordered Sig/Santy Start Time Stop Time Status Last Admin Dose Admin Fentanyl Citrate (Fentanyl 2ml Vial) 50 mcg 1X ONCE 03/15/19 16:30 03/15/19 16:37 DC 03/15/19 16:54 50 MCG Ondansetron HCl (Zofran) 4 mg 1X ONCE 03/15/19 16:30 03/15/19 16:37 DC 03/15/19 16:53 4 MG Sodium Chloride 1,000 ml @ 1,000 mls/hr Q1H 03/15/19 16:19 03/15/19 17:18 DC 03/15/19 16:53 1,000 MLS/HR Allergies Allergies Allergies Coded Allergies Type Severity Reaction Last Updated Verified No Known Drug Allergies 09/10/14 No Physical Exam Physical Exam Constitutional: Well developed, well nourished, mild distress, non-toxic appearance. [] HENT: Normocephalic, atraumatic. Eyes: PERRLA, EOMI, conjunctiva normal, no discharge. [] Neck: Normal range of motion, no tenderness, supple, no stridor. [] Cardiovascular:Heart rate regular rhythm, no murmur [] Lungs & Thorax: Bilateral breath sounds clear to auscultation [] Abdomen: Bowel sounds normal, soft, no tenderness, no masses, no pulsatile masses. [] Skin: Warm, dry, no erythema, no rash. [] Back: No tenderness, no CVA tenderness. [] Extremities: No tenderness, no cyanosis, no clubbing, ROM intact, no edema. [] Neurologic: Alert and oriented X 3, no focal deficits noted. [] Psychologic: Affect normal, judgement normal, mood normal. [] Current Patient Data Vital Signs Vital Signs Date Time Temp Pulse Resp B/P (MAP) Pulse Ox O2 Delivery O2 Flow Rate FiO2 03/15/19 16:54 Room Air 03/15/19 16:30 99.7 105 14 137/90 (106) 95 99.7 Lab Values Laboratory Tests Test 03/15/19 16:08 03/15/19 16:50 Urine Color Yellow Urine Clarity Clear Urine pH 5.5 Urine Specific [place] >=1.030 Urine Protein Negative mg/dL (NEG-TRACE) Urine Glucose (UA) >=1000 mg/dL (NEG) Urine Ketones (Stick) Trace mg/dL (NEG) Urine Blood Negative (NEG) Urine Nitrite Negative (NEG) Urine Bilirubin Negative (NEG) Urine Urobilinogen Dipstick 1.0 mg/dL (0.2 mg/dL) Urine Leukocyte Esterase Negative (NEG) Urine RBC Rare /HPF (0-2) Urine WBC 1-4 /HPF (0-4) Urine Squamous Epithelial Cells Occ /LPF Urine Bacteria 0 /HPF (0-FEW) Urine Mucus Mod /LPF White Blood Count 9.1 x10^3/uL (4.0-11.0) Red Blood Count 4.44 x10^6/uL (4.30-5.70) Hemoglobin 14.9 g/dL (13.0-17.5) Hematocrit 42.2 % (39.0-53.0) Mean Corpuscular Volume 95 fL (79-100) Mean Corpuscular Hemoglobin 34 pg (25-35) Mean Corpuscular Hemoglobin Concent 35 g/dL (31-37) Red Cell Distribution Width 12.9 % (11.5-14.5) Platelet Count 253 x10^3/uL (140-400) Neutrophils (%) (Auto) 61 % (31-73) Lymphocytes (%) (Auto) 25 % (24-48) Monocytes (%) (Auto) 9 % (0-9) Eosinophils (%) (Auto) 4 % (0-3) H Basophils (%) (Auto) 0 % (0-3) Neutrophils # (Auto) 5.6 x10^3/uL (1.8-7.7) Lymphocytes # (Auto) 2.3 x10^3/uL (1.0-4.8) Monocytes # (Auto) 0.8 x10^3/uL (0.0-1.1) Eosinophils # (Auto) 0.4 x10^3/uL (0.0-0.7) Basophils # (Auto) 0.0 x10^3/uL (0.0-0.2) Prothrombin Time 12.3 SEC (11.7-14.0) Prothrombin Time INR 0.9 (0.8-1.1) Sodium Level 138 mmol/L (136-145) Potassium Level 3.8 mmol/L (3.5-5.1) Chloride Level 101 mmol/L (98-107) Carbon Dioxide Level 28 mmol/L (21-32) Anion Gap 9 (6-14) Blood Urea Nitrogen 14 mg/dL (8-26) Creatinine 0.9 mg/dL (0.7-1.3) Estimated GFR (Cockcroft-Gault) 88.3 BUN/Creatinine Ratio 16 (6-20) Glucose Level 172 mg/dL (70-99) H Lactic Acid Level 1.9 mmol/L (0.4-2.0) Calcium Level 9.1 mg/dL (8.5-10.1) Total Bilirubin 0.5 mg/dL (0.2-1.0) Aspartate Amino Transferase (AST) 26 U/L (15-37) Alanine Aminotransferase (ALT) 58 U/L (16-63) Alkaline Phosphatase 121 U/L (46-116) H Total Protein 7.3 g/dL (6.4-8.2) Albumin 3.4 g/dL (3.4-5.0) Albumin/Globulin Ratio 0.9 (1.0-1.7) L Lipase 106 U/L (73-393) Laboratory Tests 03/15/19 16:50 Laboratory Tests 03/15/19 16:50 EKG EKG [] Radiology/Procedures Radiology/Procedures [facility] [address] [place] [address] IMAGING REPORT Signed PATIENT: FROYLAN BURKETT ACCOUNT: [id number] : 1965 LOCATION: ER AGE: 53 SEX: M EXAM STATUS: REG ER ORD. PHYSICIAN: JOSE MANUEL MARTIN MD REASON: left upper quadrant pain, history of diverticulitis PROCEDURE: CT ABDOMEN PELVIS WO CONTRAST Examination: CT of the abdomen pelvis without contrast HISTORY: History of left upper quadrant abdominal pain, diverticulitis COMPARISON: 05/26/2018 TECHNIQUE: Axial CT images of the abdomen pelvis were performed without contrast. Coronal and sagittal reformats are performed. Exposure: One or more of the following individualized dose reduction techniques were utilized for this examination: 1. Automated exposure control 2. Adjustment of the mA and/or kV according to patient size 3. Use of iterative reconstruction technique FINDINGS: Minimal bibasilar lung atelectasis. No evidence of free air identified in the abdomen. Diffuse decreased attenuation noted in the liver likely hepatic steatosis. The spleen, adrenals grossly appears unremarkable. The gallbladder is minimally distended. The stomach is mildly distended. The visualized pancreas grossly appears unremarkable. The small bowel is nondilated. The appendix is normal. Multiple colloid diverticulosis. There is mild inflammatory fat stranding identified in the distal transverse colon likely acute diverticulitis. No evidence of intrarenal collecting system calculi or hydronephrosis. Urinary bladder is mildly distended Moderate degenerative changes thoracic lumbar spine. IMPRESSION: 1. Mild inflammatory fat stranding identified in the distal transverse colon likely acute diverticulitis. 2. Hepatic steatosis. Electronically signed by: Spenser Hearn MD (03/15/2019 5:37 PM) [facility] [place] DICTATED and SIGNED BY: SPENSER HEARN MD DATE: 03/15/19 2896 Course & Med Decision Making Course & Med Decision Making Pertinent Labs and Imaging studies reviewed. (See chart for details) Evaluation of patient in ER showed 53-year-old with early diverticulitis without leukocytosis or elevation of lactic acid or electrolyte problem. Plan discharge patient home with prescription of Flagyl and Cipro instruction follow up with his primary care physician in 2 days and follow up with liquid diet. discharge: I've spoken with the patient and/or caregivers. I've explained the patient's condition, diagnosis and treatment plan based on information available to me at this time. I've answered the patient's and/or caregivers questions and addressed any concerns. The patient and/or caregivers have a good understanding the patient's diagnosis, condition and treatment plan as can be expected at this point. Vital signs have been stabilized. The patient's condition is stable for discharge from the emergency department. The patient will pursue further outpatient evaluation with her primary care provider or other designated consulting physician as outlined in the discharge instructions. Patient and/or caregivers are agreeable to this plan of care and follow-up instructions have been explained in detail. The patient and/or caregivers have received these instructions in written format and expressed understanding of these discharge instructions. The patient and her caregivers ar e aware that if any significant change in condition or worsening of symptoms should prompt him to immediately return to this of the closest emergency department. If an emergent department is not readily available I would encourage him to call 911. Dragon Disclaimer Dragon Disclaimer This electronic medical record was generated, in whole or in part, using a voice recognition dictation system. Departure Departure Impression: Primary Impression: Acute diverticulitis Additional Impression: Uncontrolled diabetes mellitus Disposition: HOME, SELF-CARE (180) Condition: IMPROVED Referrals: Vick LYONS MD (PCP) Patient Instructions: 1800 Calorie Diet for Diabetes Meal Planning, Di verticulitis Additional Instructions: Drink plenty of liquids Follow-up with your primary care physician in 3 days Return to ER if not getting better Do not eat solid food for the next 48 hours Thank you for visiting [facility]. We appreciate you trusting us with your care. If any additional problems come up don't hesitate to return to visit us. Please follow up with your primary care provider so they can plan additional care if needed and know about the problem that you had. If symptoms worsen come back to the Emergency Department. Any concerning symptoms that start such as chest pain, shortness of air, weakness or numbness on one side of the body, running high fevers or any other concerning symptoms return to the ER. Scripts Hydrocodone/Apap 5-325 (NORCO 5-325 TABLET) 1 Each Tablet 1 TAB PO PRN Q6HRS PRN for PAIN, #10 TAB 0 Refills Prov: JOSE MANUEL MARTIN MD 03/15/19 Ciprofloxacin Hcl (CIPRO) 500 Mg Tablet 1 TAB PO Q12HR for 7 Days, #14 TAB 0 Refills Prov: JOSE MANUEL MARTIN MD 03/15/19 Metronidazole (FLAGYL) 500 Mg Tablet 1 TAB PO Q8HRS, #21 TAB Prov: JOSE MANUEL MARTIN MD 03/15/19 Problem Qualifiers Additional Impression: Uncontrolled diabetes mellitus Diabetes mellitus type: other specified (including ADAM) Glycemic state: with hyperglycemia Qualified Codes: E13.65 - Other specified diabetes mellitus with hyperglycemia JOSE MANUEL MARTIN MD Mar 15, 2019 16:28
[2019-03-15 16:30] LABS: BILIRUBIN,URINE NEGATIVE (NEG); CLARITY,URINE CLEAR; COLOR,URINE YELLOW; NITRITE,URINE NEGATIVE (NEG); PH,URINE 5.5; PROTEIN,URINE NEGATIVE (NEG-TRACE)
[2019-03-15] MEDS ORDERED: ONDANSETRON PF 4 MG/2 ML VIAL. IV ONE (16:30)
[2019-03-15] MEDS ORDERED: fentaNYL PF VIAL 100 MCG/2 ML VIAL IV ONE (16:30)
[2019-03-15 16:39] LABS: RBC,URINE RARE /HPF (0-2)
[2019-03-15 16:40] LABS: BACTERIA,URINE 0 /HPF (0-FEW); SQUAMOUS EPITHELIAL CELL,UR OCC /LPF
[2019-03-15 17:01] LABS: BASO % 0 % (0-3); EOS # 0.4 x10^3/uL (0.0-0.7); EOS % 4 % (0-3); HEMATOCRIT 42.2 % (39.0-53.0); HEMOGLOBIN 14.9 g/dL (13.0-17.5); LYMPH # 2.3 x10^3/uL (1.0-4.8); LYMPH % 25 % (24-48); MEAN CORPUSCULAR HEMOGLOBIN 34 pg (25-35); MEAN CORPUSCULAR HGB CONC 35 g/dL (31-37); MEAN CORPUSCULAR VOLUME 95 fL (79-100); MONO # 0.8 x10^3/uL (0.0-1.1); MONO % 9 % (0-9); NEUT # 5.6 x10^3/uL (1.8-7.7); NEUT % 61 % (31-73); PLATELET COUNT 253 x10^3/uL (140-400); RED BLOOD COUNT 4.44 x10^6/uL (4.30-5.70); RED CELL DISTRIBUTION WIDTH 12.9 % (11.5-14.5); WHITE BLOOD COUNT 9.1 x10^3/uL (4.0-11.0)
[2019-03-15 17:09] LABS: PROTHROMBIN TIME PATIENT 12.3 SEC (11.7-14.0)
[2019-03-15 17:16] LABS: CALCIUM 9.1 mg/dL (8.5-10.1); CREATININE 0.9 mg/dL (0.7-1.3); GFR 88.3; POTASSIUM 3.8 mmol/L (3.5-5.1)
[2019-03-15 17:22] LABS: ALBUMIN 3.4 g/dL (3.4-5.0); ALBUMIN/GLOBULIN RATIO 0.9 (1.0-1.7); TOTAL BILIRUBIN 0.5 mg/dL (0.2-1.0); TOTAL PROTEIN 7.3 g/dL (6.4-8.2)
--- NOTE | 2019-03-15 17:40 | RAD ---
Examination: CT of the abdomen pelvis without contrast HISTORY: History of left upper quadrant abdominal pain, diverticulitis COMPARISON: 05/26/2018 TECHNIQUE: Axial CT images of the abdomen pelvis were performed without contrast. Coronal and sagittal reformats are performed. Exposure: One or more of the following individualized dose reduction techniques were utilized for this examination: 1. Automated exposure control 2. Adjustment of the mA and/or kV according to patient size 3. Use of iterative reconstruction technique FINDINGS: Minimal bibasilar lung atelectasis. No evidence of free air identified in the abdomen. Diffuse decreased attenuation noted in the liver likely hepatic steatosis. The spleen, adrenals grossly appears unremarkable. The gallbladder is minimally distended. The stomach is mildly distended. The visualized pancreas grossly appears unremarkable. The small bowel is nondilated. The appendix is normal. Multiple colloid diverticulosis. There is mild inflammatory fat stranding identified in the distal transverse colon likely acute diverticulitis. No evidence of intrarenal collecting system calculi or hydronephrosis. Urinary bladder is mildly distended Moderate degenerative changes thoracic lumbar spine. IMPRESSION: 1. Mild inflammatory fat stranding identified in the distal transverse colon likely acute diverticulitis. 2. Hepatic steatosis. Electronically signed by: Spenser Hearn MD (03/15/2019 5:37 PM) [facility]
[2019-03-15] MEDS ORDERED: CIPR500T94 PO (18:06)
[2019-03-15] MEDS ORDERED: HYDR-3164 PO (18:06)
[2019-03-15] MEDS ORDERED: METR500T PO (18:06)
[2019-03-15 18:20] VITALS: BP 140/83
== END 2019-03-15 18:26 | disposition home or self-care (01) ==
LOC: ER 15:25
DX: K57.92 Diverticulitis of intestine, part unspecified, without perforation or abscess without bleeding (principal); E11.65 Type 2 diabetes mellitus with hyperglycemia; R19.7 Diarrhea, unspecified; G25.81 Restless legs syndrome; R10.12 Left upper quadrant pain; E78.00 Pure hypercholesterolemia, unspecified; I10 Essential (primary) hypertension; Z98.890 Other specified postprocedural states
CPT/HCPCS: 36415; 74176; 80053; 81001; 83605; 83690; 85025; 85610; 87040; 96361; 96374; 96375; 99285; J2405; J3010; J7030

== ENCOUNTER 2019-07-16 14:23 | Emergency (ER) | payer OTHER ==
[~2019-07-16] VITALS: Ht 165.1 cm; Wt 104.0 kg
[~2019-07-16 14:23] MED LIST changes: +CIPR500T94 PO; +HYDR-3164 PO; +METR500T PO; +PRAM1TAB36 PO; -PRAM1TAB5 PO
[2019-07-16] MEDS ORDERED: HYDROmorphone 2 MG/ML VIAL IVP ONE (15:15)
[2019-07-16] MEDS ORDERED: IV NORMAL SALINE 1000ML BAG 1,000 ML IV ONE (15:15)
[2019-07-16] MEDS ORDERED: ONDANSETRON PF 4 MG/2 ML VIAL. IV ONE (15:15)
[2019-07-16 15:49] LABS: BASO # 0.1 x10^3/uL (0.0-0.2); BASO % 1 % (0-3); EOS # 0.5 x10^3/uL (0.0-0.7); EOS % 5 % (0-3); HEMATOCRIT 42.1 % (39.0-53.0); HEMOGLOBIN 14.5 g/dL (13.0-17.5); LYMPH # 2.2 x10^3/uL (1.0-4.8); LYMPH % 24 % (24-48); MEAN CORPUSCULAR HEMOGLOBIN 33 pg (25-35); MEAN CORPUSCULAR HGB CONC 34 g/dL (31-37); MEAN CORPUSCULAR VOLUME 96 fL (79-100); MONO # 0.8 x10^3/uL (0.0-1.1); MONO % 9 % (0-9); NEUT # 5.6 x10^3/uL (1.8-7.7); NEUT % 62 % (31-73); PLATELET COUNT 252 x10^3/uL (140-400); RED BLOOD COUNT 4.39 x10^6/uL (4.30-5.70); RED CELL DISTRIBUTION WIDTH 13.2 % (11.5-14.5); WHITE BLOOD COUNT 9.1 x10^3/uL (4.0-11.0)
[2019-07-16 15:54] LABS: GFR 78.2; POTASSIUM 4.3 mmol/L (3.5-5.1)
[2019-07-16 16:00] LABS: ALBUMIN 3.5 g/dL (3.4-5.0); ALBUMIN/GLOBULIN RATIO 1.1 (1.0-1.7); TOTAL BILIRUBIN 0.3 mg/dL (0.2-1.0); TOTAL PROTEIN 6.8 g/dL (6.4-8.2)
[2019-07-16 16:15] LABS: BILIRUBIN,URINE NEGATIVE (NEG); CLARITY,URINE CLEAR; COLOR,URINE YELLOW
[2019-07-16] MEDS ORDERED: IOHEXOL 300 MG/ML 100ML VIAL. IV ONE (16:15)
[2019-07-16 16:16] LABS: NITRITE,URINE NEGATIVE (NEG); PH,URINE 5.5 (<5.0-8.0); PROTEIN,URINE NEGATIVE (NEG-TRACE); UROBILINOGEN,URINE 0.2 mg/dL (0.2 mg/dL)
[2019-07-16 16:17] LABS: SQUAMOUS EPITHELIAL CELL,UR FEW /LPF
[2019-07-16 16:18] LABS: AMORPHOUS SEDIMENT,UR PRESENT /HPF; BACTERIA,URINE 0 /HPF (0-FEW); RBC,URINE 0 /HPF (0-2); WBC,URINE OCC /HPF (0-4)
--- NOTE | 2019-07-16 16:39 | RAD ---
EXAM: Abdomen and pelvis CT with intravenous contrast. HISTORY: Pain. TECHNIQUE: Computed tomographic images of the abdomen and pelvis were obtained following the administration of intravenous contrast. Multiplanar reformatting was performed. *One or more of the following individualized dose reduction techniques were utilized for this examination: 1. Automated exposure control. 2. Adjustment of the mA and/or kV according to patient size. 3. Use of iterative reconstruction technique. COMPARISON: 05/26/2018. FINDINGS: Evaluation of the lower thorax demonstrates no suspicious pulmonary nodule. There is a calcified granuloma within the left lower lobe. There is posterior dependent and basilar atelectasis. The heart is normal in size. There is hepatomegaly and hepatic steatosis. No suspicious hepatic lesion is seen. The gallbladder, pancreas, spleen and adrenal glands are unremarkable. There is a small simple appearing cyst within the upper pole of the right kidney. There is no appendicitis. There is colonic diverticulosis. There is no convincing diverticulitis. There is slight pericolic stranding involving the splenic flexure is not clearly within limits to suggest diverticulitis. There is mild wall thickening involving fluid-filled loops of proximal small bowel. There is evidence of ventral abdominal wall hernia repair. There is a tiny fat-containing midline ventral abdominal wall hernia superior to the ventral abdominal wall mesh. The bladder is unremarkable. There is no lymphadenopathy. The aorta is normal in caliber. There is no suspicious osseous lesion. IMPRESSION: 1. Colonic diverticulosis. There is slight fatty stranding involving the splenic flexure of the colon which is not clearly within limits to suggest acute diverticulitis. 2. Mild wall thickening involving loops of proximal small bowel. This is likely physiologic and not within limits to suggest enteritis. 3. Hepatic steatosis and hepatomegaly. 4. Small right renal cyst. 5. Tiny fat-containing ventral abdominal wall hernia superior to mesh related to prior hernia repair. Electronically signed by: Farnaz Ogden MD (07/16/2019 4:35 PM) [facility]
[2019-07-16] MEDS ORDERED: OXYC1TAB15 PO (17:45)
--- NOTE | 2019-07-16 17:46 | PHYS DOC ---
Past Medical History Past Medical History: Diabetes-Type II, Diverticulitis, High Cholesterol, Hypertension Additional Past Medical Histor: RLS Past Surgical History: Other Additional Past Surgical Histo: 14" COLON RESECTION, HERNIA Smoking Status: Former Smoker Alcohol Use: None Drug Use: None General Adult EDM: Chief Complaint: BACK PAIN - NO INJURY HPI: HPI: 53-year-old male presents with severe back pain. States this is been ongoing for some time is been seen by his primary doctor and given muscle relaxers but this has not helped. Today states the pain radiates around to the front. He has had some nausea associated with of the pain. He states the pain is so severe that it doubles him over. He denies any fever chills or sweats. He does not have a rash. He does state that he had an abnormal gallbladder function test sometime ago. [] Review of Systems: Review of Systems: Constitutional: Denies fever or chills. [] Eyes: Denies change in visual acuity. [] HENT: Denies nasal congestion or sore throat. [] Respiratory: Denies cough or shortness of breath. [] Cardiovascular: Denies chest pain or edema. [] GI: Denies abdominal pain, nausea, vomiting, bloody stools or diarrhea. [] : Denies dysuria. [] Musculoskeletal: Reports severe back pain [] Integument: Denies rash. [] Neurologic: Denies headache, focal weakness or sensory changes. [] Endocrine: Denies polyuria or polydipsia. [] Lymphatic: Denies swollen glands. [] Psychiatric: Denies depression or anxiety. [] Heart Score: Risk Factors: Risk Factors: DM, Current or recent (<one month) smoker, HTN, HLP, family history of CAD, obesity. Risk Scores: Score 0 - 3: 2.5% MACE over next 6 weeks - Discharge Home Score 4 - 6: 20.3% MACE over next 6 weeks - Admit for Clinical Observation Score 7 - 10: 72.7% MACE over next 6 weeks - Early Invasive Strategies Current Medications: Current Medications Medications (Trade) Dose Ordered Sig/Santy Start Time Stop Time Status Last Admin Dose Admin Hydromorphone HCl (Dilaudid) 1 mg 1X ONCE 07/16/19 15:15 07/16/19 15:17 DC 07/16/19 15:45 1 MG Iohexol (Omnipaque 300 Mg/ml) 75 ml 1X ONCE 07/16/19 16:15 07/16/19 16:16 DC 07/16/19 16:23 75 ML Ondansetron HCl (Zofran) 4 mg 1X ONCE 07/16/19 15:15 07/16/19 15:17 DC 07/16/19 15:44 4 MG Sodium Chloride 1,000 ml @ 1,000 mls/hr 1X ONCE 07/16/19 15:15 07/16/19 16:14 DC 07/16/19 15:43 1,000 MLS/HR Allergies: Allergies: Allergies Coded Allergies Type Severity Reaction Last Updated Verified No Known Drug Allergies 09/10/14 No Physical Exam: PE: Constitutional: Well developed, well nourished, moderate distress, non-toxic appearance. [] HENT: Normocephalic, atraumatic, bilateral external ears normal, oropharynx moist, no oral exudates, nose normal. [] Eyes: PERRLA, EOMI, conjunctiva normal, no discharge. [] Neck: Normal range of motion, no tenderness, supple, no stridor. [] Cardiovascular:Heart rate regular rhythm, no murmur [] Lungs & Thorax: Bilateral breath sounds clear to auscultation [] Abdomen: Obese, bowel sounds normal, soft, no tenderness, no masses, no pulsatile masses. [] Skin: Warm, dry, no erythema, no rash. [] Back: No tenderness, no CVA tenderness. [] Extremities: No tenderness, no cyanosis, no clubbing, ROM intact, no edema. [] Neurologic: Alert and oriented X 3, normal motor function, normal sensory function, no focal deficits noted. [] Psychologic: Anxious [] Current Patient Data: Labs: Laboratory Tests Test 07/16/19 15:15 07/16/19 15:45 White Blood Count 9.1 x10^3/uL (4.0-11.0) Red Blood Count 4.39 x10^6/uL (4.30-5.70) Hemoglobin 14.5 g/dL (13.0-17.5) Hematocrit 42.1 % (39.0-53.0) Mean Corpuscular Volume 96 fL (79-100) Mean Corpuscular Hemoglobin 33 pg (25-35) Mean Corpuscular Hemoglobin Concent 34 g/dL (31-37) Red Cell Distribution Width 13.2 % (11.5-14.5) Platelet Count 252 x10^3/uL (140-400) Neutrophils (%) (Auto) 62 % (31-73) Lymphocytes (%) (Auto) 24 % (24-48) Monocytes (%) (Auto) 9 % (0-9) Eosinophils (%) (Auto) 5 % (0-3) H Basophils (%) (Auto) 1 % (0-3) Neutrophils # (Auto) 5.6 x10^3/uL (1.8-7.7) Lymphocytes # (Auto) 2.2 x10^3/uL (1.0-4.8) Monocytes # (Auto) 0.8 x10^3/uL (0.0-1.1) Eosinophils # (Auto) 0.5 x10^3/uL (0.0-0.7) Basophils # (Auto) 0.1 x10^3/uL (0.0-0.2) Sodium Level 141 mmol/L (136-145) Potassium Level 4.3 mmol/L (3.5-5.1) Chloride Level 102 mmol/L (98-107) Carbon Dioxide Level 27 mmol/L (21-32) Anion Gap 12 (6-14) Blood Urea Nitrogen 19 mg/dL (8-26) Creatinine 1.0 mg/dL (0.7-1.3) Estimated GFR (Cockcroft-Gault) 78.2 BUN/Creatinine Ratio 19 (6-20) Glucose Level 123 mg/dL (70-99) H Calcium Level 9.0 mg/dL (8.5-10.1) Total Bilirubin 0.3 mg/dL (0.2-1.0) Aspartate Amino Transferase (AST) 22 U/L (15-37) Alanine Aminotransferase (ALT) 45 U/L (16-63) Alkaline Phosphatase 107 U/L (46-116) Troponin I Quantitative < 0.017 ng/mL (0.000-0.055) Total Protein 6.8 g/dL (6.4-8.2) Albumin 3.5 g/dL (3.4-5.0) Albumin/Globulin Ratio 1.1 (1.0-1.7) Lipase 147 U/L (73-393) Urine Collection Type Unknown Urine Color Yellow Urine Clarity Clear Urine pH 5.5 (<5.0-8.0) Urine Specific [place] >=1.030 (1.000-1.030) Urine Protein Negative mg/dL (NEG-TRACE) Urine Glucose (UA) Negative mg/dL (NEG) Urine Ketones (Stick) Negative mg/dL (NEG) Urine Blood Negative (NEG) Urine Nitrite Negative (NEG) Urine Bilirubin Negative (NEG) Urine Urobilinogen Dipstick 0.2 mg/dL (0.2 mg/dL) Urine Leukocyte Esterase Negative (NEG) Urine RBC 0 /HPF (0-2) Urine WBC Occ /HPF (0-4) Urine Squamous Epithelial Cells Few /LPF Urine Amorphous Sediment Present /HPF Urine Bacteria 0 /HPF (0-FEW) Urine Mucus Mod /LPF Laboratory Tests 07/16/19 15:15 Laboratory Tests 07/16/19 15:15 Vital Signs: Vital Signs Date Time Temp Pulse Resp B/P (MAP) Pulse Ox O2 Delivery O2 Flow Rate FiO2 07/16/19 14:40 99.1 99 20 181/84 (116) 98 Room Air 99.1 EKG: EKG: [] Radiology/Procedures: Radiology/Procedures: [] Impression: REASON: abdominal pain PROCEDURE: CT ABD PELV W/ IV CONTRST ONLY EXAM: Abdomen and pelvis CT with intravenous contrast. HISTORY: Pain. TECHNIQUE: Computed tomographic images of the abdomen and pelvis were obtained following the administration of intravenous contrast. Multiplanar reformatting was performed. *One or more of the following individualized dose reduction techniques were utilized for this examination: 1. Automated exposure control. 2. Adjustment of the mA and/or kV according to patient size. 3. Use of iterative reconstruction technique. COMPARISON: 05/26/2018. FINDINGS: Evaluation of the lower thorax demonstrates no suspicious pulmonary nodule. There is a calcified granuloma within the left lower lobe. There is posterior dependent and basilar atelectasis. The heart is normal in size. There is hepatomegaly and hepatic steatosis. No suspicious hepatic lesion is seen. The gallbladder, pancreas, spleen and adrenal glands are unremarkable. There is a small simple appearing cyst within the upper pole of the right kidney. There is no appendicitis. There is colonic diverticulosis. There is no convincing diverticulitis. There is slight pericolic stranding involving the splenic flexure is not clearly within limits to suggest diverticulitis. There is mild wall thickening involving fluid-filled loops of proximal small bowel. There is evidence of ventral abdominal wall hernia repair. There is a tiny fat-containing midline ventral abdominal wall hernia superior to the ventral abdominal wall mesh. The bladder is unremarkable. There is no lymphadenopathy. The aorta is normal in caliber. There is no suspicious osseous lesion. IMPRESSION: 1. Colonic diverticulosis. There is slight fatty stranding involving the splenic flexure of the colon which is not clearly within limits to suggest acute diverticulitis. 2. Mild wall thickening involving loops of proximal small bowel. This is likely physiologic and not within limits to suggest enteritis. 3. Hepatic steatosis and hepatomegaly. 4. Small right renal cyst. 5. Tiny fat-containing ventral abdominal wall hernia superior to mesh related to prior hernia repair. Course & Med Decision Making: Course & Med Decision Making Pertinent Labs and Imaging studies reviewed. (See chart for details) [ED course: Evaluation reveals a 53-year-old male with back and abdominal pain. I was concerned enough about his pain being in the mid back radiating around to the front that we ruled out a aortic dissection. He was given IV fluids and pain medication which did help ease his symptoms. I do not believe this is an intra-abdominal pathology. It is likely more musculoskeletal.] Dragon Disclaimer: Dragramesh Disclaimer: This electronic medical record was generated, in whole or in part, using a voice recognition dictation system. Departure Departure Impression: Primary Impression: Acute back pain Qualified Codes: M54.5 - Low back pain Disposition: 01 HOME, SELF-CARE Condition: IMPROVED Referrals: Vick LYONS MD (PCP) Patient Instructions: Back Pain, Adult Additional Instructions: Return to the emergency department with any new or concerning symptoms Scripts Oxycodone/Apap 5-325 (PERCOCET 5-325 MG TABLET ) 1 Each Tablet 1 TAB PO PRN Q6HRS PRN for PAIN, #12 TAB 0 Refills Prov: MONO HILARIO DO 07/16/19 MONO HILARIO DO July 16, 2019 17:46
[2019-07-16 18:20] VITALS: BP 154/84
--- NOTE | 2019-07-17 08:28 | EKG ---
[facility] [address] [place] [address] Test Date: 2019-07-16 Test Time: 15:49:27 Pat Name: FROYLAN BURKETT Department: Room: Gender: [employer]: : 1965 Requested By: MONO HILARIO Order Number: [id number] Reading MD: Wayne Curry Measurements Intervals [place] Rate: 95 P: 38 FL: 158 QRS: 45 QRSD: 86 T: 47 QT: 344 QTc: 435 Interpretive Statements SINUS RHYTHM Electronically Signed On 07-17-2019 11:01:20 CDT by Wayne Curry
== END 2019-07-16 18:23 | disposition home or self-care (01) ==
LOC: ER 14:23
DX: M54.5 Low back pain (principal); R11.0 Nausea; E11.9 Type 2 diabetes mellitus without complications; E78.00 Pure hypercholesterolemia, unspecified; I10 Essential (primary) hypertension; Z87.891 Personal history of nicotine dependence; Z98.890 Other specified postprocedural states
CPT/HCPCS: 36415; 74177; 80053; 81001; 83690; 84484; 85025; 93005; 96374; 96375; 99285; J1170; J2405; J7030; Q9967

== ENCOUNTER → 2020-03-05 | Outpatient (CLI) | payer OTHER ==
[2020-02-14 11:00] VITALS: BP 139/83
[~2020-03-05] MED LIST changes: +CLONAZEPAM1 MG PO; +GLIM4TAB8 PO; +IOHEXOL 240 MG/ML 50ML VIAL. PO ONE; +IOHEXOL 300 MG/ML 100ML VIAL. IV ONE; +MODA100T2 PO; +OXYC1TAB15 PO; +TRAZ-118 PO
--- NOTE | 2020-03-05 17:23 | KCIC ---
EXAM: CT Abdomen and Pelvis with IV contrast INDICATION: Reason: Acute pancreatitis. / Spl. Instructions: 100mL Omni 300 / History: Hx colon resec tion due to diverticulitis, 2 incisional hernia repairs. TECHNIQUE: Multi-detector row CT images were acquired from the lung bases through the abdomen and pel vis with the use of IV contrast. Sagittal and coronal images were acquired from the transaxial data. All CT scans performed at this facility utilize dose optimization techniques as appropriate to the ex am, including the following: Automated exposure control and adjustment of the mA and/or KV according to patient size (this includes techniques or standardized protocols for targeted exams where dose is indication/reason for exam). IV CONTRAST: Administered ORAL CONTRAST: Administered COMPARISON: Contrast-enhanced abdomen pelvis CT 07/16/2019 FINDINGS: LOWER CHEST: Minimal subpleural reticular densities are new or more apparent in the interval. No pneu mothorax or pleural effusion at the included lung bases LIVER: Persistent diffuse hepatic steatosis. BILIARY SYSTEM: Distended gallbladder. No radiopaque stones. Bile ducts are not dilated. PANCREAS: Subtle peripancreatic soft tissue stranding, consistent with mild acute pancreatitis is no javier. No parenchymal necrosis is clearly demonstrated and no intraparenchymal fluid collection is seen . SPLEEN: Unremarkable ADRENALS: Unremarkable KIDNEYS & URETERS: Unremarkable BLADDER: Unremarkable REPRODUCTIVE ORGANS: Unremarkable GASTROINTESTINAL: Scattered colonic diverticuli. No findings of bowel obstruction, perforation or acu te inflammation. The appendix is normal. MESENTERY/PERITONEUM/RETROPERITONEUM: Intact ventral hernia mesh repair with no evidence of a recurre nt hernia. No ascites, free air or fluid collection. VASCULAR: Unremarkable LYMPH NODES: No adenopathy OSSEOUS & SOFT TISSUES: Unremarkable IMPRESSION: Findings of mild acute pancreatitis and hepatic steatosis with no abscess, parenchymal necrosis seen. No other acute findings on contrast enhanced CT of the abdomen and pelvis appreciated. Electronically signed by: Kory Chicas MD (03/05/2020 5:20 PM) [id number]
== END ==
LOC: KCIC CT 10:06
PROVIDERS: ATTEND Family Medicine
DX: K76.0 Fatty (change of) liver, not elsewhere classified (principal); K57.30 Diverticulosis of large intestine without perforation or abscess without bleeding; K43.9 Ventral hernia without obstruction or gangrene; K85.90 Acute pancreatitis without necrosis or infection, unspecified
CPT/HCPCS: 74177; Q9966; Q9967